=== PATIENT | female | born 1995 | race Caucasian/White ===

== ENCOUNTER 2016-07-09 20:32 | Emergency (ER) | payer OTHER ==
[2016-07-09 20:41] VITALS: BP 140/90
[2016-07-09] MEDS ORDERED: AMOXICILLIN500 M3 PO (21:08)
--- NOTE | 2016-07-09 21:08 | ED EAR COMPLAINT ---
History of Present Illness General Chief Complaint: Ear Complaints Stated Complaint: LOSS OF HEARING AND PAIN IN LEFT EAR Source: patient Exam Limitations: no limitations Vital Signs & Intake/Output Vital Signs & Intake/Output Vital Signs Date Time Temp Pulse Resp B/P Pulse O2 O2 Flow FiO2 Ox Delivery Rate 07/09 2040 98.5 98 16 140/90 99 Room Air Allergies Coded Allergies: No Known Allergies (07/09/16) Reconcile Medications Amoxicillin 500 MG TABLET 1 TAB PO TID EAR INFECTION Triage Note: TRIAGE; PT TO ED C/O LOSS OF HEARING TO LT EAR. STATES HAPPENED 3 DAYS AGO. STATES SOUNDS ARE MUFFLED AND LIKE SHE IS UNDERWATER, DENIES ANY RECENT FLYING OR SWIMMING. STATES SHE TRIED USING AN EAR CANDLE WITH NO RELIEF. ALSO STARTED TO GET A HEADACHE THAT STARTED THE SAME TIME HER EAR. Triage Nurses Notes Reviewed? yes : No Patient currently breastfeeds: No HPI: Patient presents with loss of hearing and pain to her left ear for the past 3 days. Positive chills but no fevers. The pain is throbbing in nature. The pain is constant. There've been no aggravating or mitigating factors. She rates the pain as 4 out of 10. There is no radiation of the pain. Past History Travel History Traveled to [place] past 21 day No Medical History Any Pertinent Medical History? none Surgical History Surgical History: non-contributory Psychosocial History What is your primary language Moroccan Tobacco Use: Never used ETOH Use: occasional use Illicit Drug Use: denies illicit drug use Family History Hx Contributory? No Review of Systems Review of Systems Constitutional: Reports: see HPI, chills. EENTM: Reports: see HPI, ear pain, hearing changes. Respiratory: Reports: no symptoms. Cardiovascular: Reports: no symptoms. Musculoskeletal: Reports: no symptoms. Neurological/Psychological: Reports: no symptoms. Physical Exam Physical Exam General Appearance: well developed/nourished, alert, awake Head: atraumatic Eyes: Bilateral: PERRL, EOMI. Ears: Left: Tympanic dull, Tympanic red, Tympanic bulging. Right: canal normal, Tympanic normal. Mouth/Throat: normal mouth inspection, pharynx normal Neck: normal inspection, supple, NO LAD Neurologic/Psych: no motor/sensory deficits, awake, alert, oriented x 3, normal gait, normal mood/affect Progress Differential Diagnoses I considered the following diagnoses in my evaluation of the patient: [Otitis media, otitis externa] Plan of Care: Current Medications Sig/Evelyn Start time Last Medication Dose Stop Time Status Admin Amoxicillin 500 MG ONCE ONE 07/09 2114 UNVr (Amoxil) 07/09 2115 Initial ED EKG: none Departure Departure Disposition: HOME OR SELF CARE Condition: Stable Clinical Impression Primary Impression: Left otitis media with effusion Referrals: PATIENT HAS NO PRIMARY CARE DR (PCP/Family) Additional Instructions: TAKE ANTIBIOTICS PRESCRIBED RETURN IF SYMPTOMS WORSEN OR FOR ANY CONCERNS Departure Forms: Customer Survey General Discharge Information Prescriptions: Current Visit Scripts Amoxicillin 1 TAB PO TID #21 TAB
== END 2016-07-09 21:17 ==
LOC: ERH 20:32
DX: H65.92 Unspecified nonsuppurative otitis media, left ear (principal)